=== PATIENT | male | born 1955 | race Caucasian/White ===

== ENCOUNTER 2022-09-01 06:35 | Inpatient (IN) ==
[2022-09-01] MEDS ORDERED: ONDANSETRON 4 MG/2 ML VIAL IV STA (07:45)
[2022-09-01] MEDS ORDERED: SODIUM CHLORIDE 0.9% 1,000 ML IV STA ×2 (07:45→09:24)
[2022-09-01] MEDS ORDERED: HYDROmorphone 1 MG/1 ML SYRINGE IV STA ×2 (07:45→09:24)
[2022-09-01 07:55] LABS: Basophils % 0.3 % (0.0-0.8); Eosinophils % 0.1 % (0.00-10.9); Hematocrit 42.9 VOL% (42.0-52.0); Hemoglobin 14.4 GM/DL (14.0-18.0); Immature Granulocytes % 0.5 %; Immature Granulocytes Absolute 0.05 #; Lymphocytes # 0.4 10*3/uL (1.4-4.0); Mean Corpuscular HGB Conc 33.6 GM/DL (32-36); Mean Corpuscular Volume 92.5 FL (87-102); Mean Platelet Volume 10.7 FL (9.6-12.0); Monocytes # 0.8 10*3/uL (0.11-0.8); Monocytes % 7.7 % (1.7-12.7); Neutrophils % 87.4 % (38.7-73.9); Platelet Count 199 T/CUMM (130-400); Red Blood Count 4.64 MC/CUMM (3.8-5.5); Red Cell Distribution Width 13.7 % (9.3-17.3); White Blood Count 10.2 T/CUMM (4-12)
[2022-09-01 08:23] LABS: Band Neutrophils 3 % (0-10); Eosinophils 1 % (0-10); Lymphocytes 5 % (20-55); Total Cells Counted 100
[2022-09-01 08:26] LABS: Platelet Estimate Adequate
[2022-09-01 08:48] LABS: Albumin 3.3 G/DL (3.4-5.0); Bilirubin,Total 0.8 MG/DL (0.20-1.00); Calcium 9.4 MG/DL (8.5-10.1); Osmolality,Calculated 277.8 MOS/KG (273-304); Total Protein 7.3 G/DL (6.4-8.2)
[2022-09-01 08:58] LABS: Bilirubin,Urine Negative (Negative); Blood, Urine Moderate mg/dL (Negative); Glucose,Urine (UA) Negative (Negative); Hyaline Casts,Urine 1 /LPF (0-3); Ketones,Urine 40 mg/dL (Negative); Mucus,Urine Occasional /LPF (Occasional); Nitrite,Urine Negative (Negative); Protein,Urine Negative (Negative); RBC,Urine 23 /HPF (0-4); Squamous Epithelial Cell,Urine Occasional /HPF (0-10); Urine Appearance Clear (Clear); Urine Color Yellow (Yellow); Urine Specific Gravity 1.025 (1.001-1.035); Urine Urobilinogen 0.2 eU/dL (<2.0); Urine pH 5.5 (4.5-8.0)
[2022-09-01] MEDS ORDERED: ONDANSETRON 4 MG/2 ML VIAL IV PRN (09:28)
[2022-09-01] MEDS ORDERED: HYDROmorphone 1 MG/1 ML SYRINGE IV PRN ×2 (09:28→12:14)
[2022-09-01] MEDS ORDERED: PROMETHAZINE 25 MG/1 ML VIAL IM PRN (12:11)
[2022-09-01] MEDS ORDERED: CALCIUM CARBONATE CHEW 500 MG TABLET PO PRN (12:14)
[2022-09-01] MEDS ORDERED: ACETAMINOPHEN 325 MG TABLET PO PRN (12:14)
[2022-09-01] MEDS ORDERED: oxyCODONE/ACETAMINOPHEN 5-325 MG TABLET PO PRN (12:14)
[2022-09-01] MEDS ORDERED: diphenhydrAMINE 50 MG/1 ML VIAL IV PRN (12:14)
[2022-09-01] MEDS ORDERED: hydrALAZINE 25 MG TABLET PO PRN (12:29)
[2022-09-01] MEDS ORDERED: BISACODYL 10 MG SUPP RECTAL ONE (12:30)
[2022-09-01] MEDS: cefTRIAXone 1,000 MG in SODIUM CHLORIDE 0.9% 100 ML IV SCH (13:02)
[2022-09-01] MEDS: SIMETHICONE CHEW 125 MG TABLET PO SCH ×3 (13:02→20:05)
[2022-09-01] MEDS: SODIUM CHLORIDE 0.9% 1,000 ML IV SCH ×2 (13:03→21:33)
[2022-09-01] MEDS ORDERED: METHYLNALTREXONE 12 MG/0.6 ML VIAL SUBCUT ONE (14:00)
[2022-09-01] MEDS ORDERED: hydrALAZINE 10 MG TABLET PO SCH (14:00)
[2022-09-01] MEDS ORDERED: amLODIPine 10 MG TABLET PO ONE (14:00)
[2022-09-01] MEDS: LACTULOSE 20 GM/30 ML UDCUP PO SCH ×2 (14:07→20:06)
[2022-09-01] MEDS: LUBIPROSTONE 8 MCG CAPSULE PO SCH ×2 (14:07→20:05)
[2022-09-01] MEDS: POLYETHYLENE GLYCOL POWDER 17 GM PACK PO SCH ×2 (14:07→20:06)
[2022-09-01] MEDS ORDERED: SILODOSIN 8 MG CAPSULE PO SCH (17:00)
[2022-09-01] MEDS: NIFEdipine 10 MG CAPSULE PO SCH ×2 (17:15→20:05)
[2022-09-01] MEDS: TAMSULOSIN 0.4 MG CAPSULE PO SCH (20:05)
[2022-09-01] MEDS: DOCUSATE SODIUM 100 MG CAPSULE PO SCH (20:05)
[2022-09-01] MEDS ORDERED: TAMSULOSIN 0.4 MG CAPSULE PO SCH ×2 (21:00)
[2022-09-02 05:04] LABS: Basophils % 0.3 % (0.0-0.8); Eosinophils # 0.1 10*3/uL (0.0-0.87); Eosinophils % 0.5 % (0.00-10.9); Hematocrit 37.1 VOL% (42.0-52.0); Hemoglobin 12.5 GM/DL (14.0-18.0); Immature Granulocytes % 0.5 %; Immature Granulocytes Absolute 0.06 #; Lymphocytes # 0.3 10*3/uL (1.4-4.0); Lymphocytes % 2.3 % (21.2-54.2); Mean Corpuscular HGB Conc 33.7 GM/DL (32-36); Mean Corpuscular Volume 93.5 FL (87-102); Mean Platelet Volume 10.9 FL (9.6-12.0); Monocytes # 1.1 10*3/uL (0.11-0.8); Neutrophils % 86.4 % (38.7-73.9); Platelet Count 179 T/CUMM (130-400); Red Blood Count 3.97 MC/CUMM (3.8-5.5); Red Cell Distribution Width 13.6 % (9.3-17.3); White Blood Count 11.1 T/CUMM (4-12)
[2022-09-02 05:25] LABS: Calcium 8.6 MG/DL (8.5-10.1); Osmolality,Calculated 281.7 MOS/KG (273-304); Potassium 3.8 MMOL/L (3.5-5.1)
[2022-09-02 05:38] LABS: Eosinophils 1 % (0-10); Lymphocytes 2 % (20-55); Platelet Estimate Adequate; Total Cells Counted 100
[2022-09-02] MEDS: SODIUM CHLORIDE 0.9% 1,000 ML IV SCH ×2 (05:40→14:07)
[2022-09-02] MEDS ORDERED: PHENOL 1.4% THROAT SPRAY 177 ML BOTTLE PO PRN (07:25)
[2022-09-02] MEDS: DOCUSATE SODIUM 100 MG CAPSULE PO SCH (08:59)
[2022-09-02] MEDS: LUBIPROSTONE 8 MCG CAPSULE PO SCH (08:59)
[2022-09-02] MEDS: TAMSULOSIN 0.4 MG CAPSULE PO SCH (08:59)
[2022-09-02] MEDS: LACTULOSE 20 GM/30 ML UDCUP PO SCH (08:59)
[2022-09-02] MEDS: LINACLOTIDE 145 MCG CAPSULE PO SCH (08:59)
[2022-09-02] MEDS: POLYETHYLENE GLYCOL POWDER 17 GM PACK PO SCH (08:59)
[2022-09-02] MEDS: NIFEdipine 10 MG CAPSULE PO SCH ×3 (09:00→16:00)
[2022-09-02] MEDS: SIMETHICONE CHEW 125 MG TABLET PO SCH ×2 (09:00→14:07)
[2022-09-02] MEDS ORDERED: ENALAPRIL 20 MG TABLET PO SCH (09:00)
[2022-09-02] MEDS ORDERED: amLODIPine 5 MG TABLET PO SCH (09:00)
[2022-09-02] MEDS ORDERED: amLODIPine 10 MG TABLET PO SCH (09:00)
[2022-09-02] MEDS ORDERED: LIDOCAINE 2% 5 ML VIAL ONE (12:17)
[2022-09-02] MEDS ORDERED: propofoL 200 MG/20 ML VIAL IV ONE (12:17)
[2022-09-02] MEDS ORDERED: ONDANSETRON 4 MG/2 ML VIAL ONE (12:17)
[2022-09-02] MEDS ORDERED: MIDAZOLAM 2 MG/2 ML VIAL ONE (12:17)
[2022-09-02] MEDS ORDERED: SEVOFLURANE 1 UNIT/15 MINUTE INH ONE ×3 (12:17→13:36)
[2022-09-02] MEDS ORDERED: fentaNYL 100 MCG/2 ML VIAL ONE (12:17)
[2022-09-02] MEDS ORDERED: DEXAMETHASONE 4 MG/1 ML VIAL ONE (12:17)
[2022-09-02] MEDS ORDERED: ROCURONIUM 50 MG/5 ML VIAL IV ONE (12:34)
[2022-09-02] MEDS ORDERED: SUCCINYLCHOLINE 200 MG/10 ML VIAL ONE (12:34)
[2022-09-02] MEDS ORDERED: ACETAMINOPHEN INJ 1,000 MG/100 ML VIAL IV ONE (12:36)
[2022-09-02] MEDS ORDERED: ePHEDrine 50 MG/ML VIAL ONE (13:02)
[2022-09-02] MEDS ORDERED: AMINO ACIDS/DEXT/LYTES 4.25-5% 2,000 ML IV SCH (16:00)
[2022-09-02] MEDS ORDERED: cloNIDine 0.2 MG/24 HR PATCH TRANSDERM SCH (16:30)
[2022-09-02] MEDS: SODIUM CHLOR 0.9% KCL 20 MEQ 20 MEQ/1,000 ML BAG IV SCH (16:41)
[2022-09-02] MEDS: DEXTROSE 5% NACL 0.45% 1,000 ML IV SCH (16:41)
[2022-09-02] MEDS: cefTRIAXone 1,000 MG in SODIUM CHLORIDE 0.9% 100 ML IV SCH (16:49)
[2022-09-03] MEDS ORDERED: hydrALAZINE 20 MG/1 ML VIAL IV ONE (01:00)
[2022-09-03] MEDS: SODIUM CHLOR 0.9% KCL 20 MEQ 20 MEQ/1,000 ML BAG IV SCH ×2 (01:34→19:15)
[2022-09-03 05:29] LABS: Basophils % 0.1 % (0.0-0.8); Eosinophils % 0.1 % (0.00-10.9); Hematocrit 37.7 VOL% (42.0-52.0); Hemoglobin 12.5 GM/DL (14.0-18.0); Immature Granulocytes % 0.3 %; Immature Granulocytes Absolute 0.03 #; Lymphocytes # 0.5 10*3/uL (1.4-4.0); Lymphocytes % 5.3 % (21.2-54.2); Mean Corpuscular HGB Conc 33.2 GM/DL (32-36); Mean Corpuscular Volume 93.5 FL (87-102); Mean Platelet Volume 10.6 FL (9.6-12.0); Monocytes % 9.7 % (1.7-12.7); Neutrophils % 84.5 % (38.7-73.9); Platelet Count 202 T/CUMM (130-400); Red Blood Count 4.03 MC/CUMM (3.8-5.5); Red Cell Distribution Width 13.7 % (9.3-17.3)
[2022-09-03 05:44] LABS: Calcium 8.7 MG/DL (8.5-10.1); Osmolality,Calculated 287.7 MOS/KG (273-304); Potassium 4.3 MMOL/L (3.5-5.1)
[2022-09-03] MEDS: LINACLOTIDE 145 MCG CAPSULE PO SCH (09:21)
[2022-09-03] MEDS ORDERED: POTASSIUM PHOS/SOD PHOS POWDER 250 MG PACK PO ONE (09:30)
[2022-09-03] MEDS: DEXTROSE 5% NACL 0.45% 1,000 ML IV SCH (10:41)
[2022-09-03] MEDS: cefTRIAXone 1,000 MG in SODIUM CHLORIDE 0.9% 100 ML IV SCH (12:15)
[2022-09-03 18:20] LABS: Risk Ratio 3.07; Thyroid Stimulating Hormone 0.26 uIU/ml (0.358-3.74); VLDL Cholesterol 14.4 MG/DL
[2022-09-03 18:25] LABS: Folate 12.56 NG/ML (5.38-24.0)
[2022-09-04] MEDS: DEXTROSE 5% NACL 0.45% 1,000 ML IV SCH (03:08)
[2022-09-04 06:09] LABS: Basophils % 0.3 % (0.0-0.8); Eosinophils # 0.1 10*3/uL (0.0-0.87); Eosinophils % 1.4 % (0.00-10.9); Hematocrit 36.2 VOL% (42.0-52.0); Immature Granulocytes % 0.4 %; Immature Granulocytes Absolute 0.03 #; Lymphocytes # 0.9 10*3/uL (1.4-4.0); Lymphocytes % 11.9 % (21.2-54.2); Mean Corpuscular HGB Conc 33.1 GM/DL (32-36); Mean Corpuscular Volume 94.5 FL (87-102); Monocytes # 0.9 10*3/uL (0.11-0.8); Monocytes % 12.7 % (1.7-12.7); Neutrophils % 73.3 % (38.7-73.9); Platelet Count 202 T/CUMM (130-400); Red Blood Count 3.83 MC/CUMM (3.8-5.5); Red Cell Distribution Width 13.7 % (9.3-17.3); White Blood Count 7.4 T/CUMM (4-12)
[2022-09-04 06:14] LABS: Basophils % 0.3 % (0.0-0.8); Eosinophils # 0.1 10*3/uL (0.0-0.87); Eosinophils % 1.3 % (0.00-10.9); Hematocrit 36.4 VOL% (42.0-52.0); Immature Granulocytes % 0.4 %; Immature Granulocytes Absolute 0.03 #; Lymphocytes # 0.9 10*3/uL (1.4-4.0); Lymphocytes % 12.1 % (21.2-54.2); Mean Corpuscular Volume 94.3 FL (87-102); Monocytes # 0.9 10*3/uL (0.11-0.8); Neutrophils % 73.9 % (38.7-73.9); Platelet Count 188 T/CUMM (130-400); Red Blood Count 3.86 MC/CUMM (3.8-5.5); Red Cell Distribution Width 13.7 % (9.3-17.3); White Blood Count 7.6 T/CUMM (4-12)
[2022-09-04 06:44] LABS: % Iron Saturation 22.6 % (18-50)
[2022-09-04 06:47] LABS: Calcium 8.7 MG/DL (8.5-10.1); Osmolality,Calculated 285.4 MOS/KG (273-304); Potassium 3.9 MMOL/L (3.5-5.1)
[2022-09-04 06:51] LABS: Folate 16.94 NG/ML (5.38-24.0); Vitamin B12 806 PG/ML (211-911)
[2022-09-04 07:20] LABS: Sedimentation Rate-Westergren 34 MM/HR (0-20)
[2022-09-04] MEDS: LINACLOTIDE 145 MCG CAPSULE PO SCH (08:37)
[2022-09-04 09:37] LABS: Hemoglobin A1 (Alkaline) 97.6 % (96.5-98.5); Hemoglobin A2 (Alkaline) 2.4 % (1.5-3.5)
[2022-09-04 15:56] VITALS: BP 145/80
[2022-09-08 14:02] LABS: Stone Analysis Interpretation SEE COMMENTS
== END 2022-09-04 18:05 | disposition home or self-care (01) | DRG 660 ==
LOC: N.EDINP 06:35 → N.ED 06:35 → N.EDINP 11:16 → N.3E 11:21
PROVIDERS: ADMIT Surgery; ATTEND Surgery